=== PATIENT | female | born 1965 | race Caucasian/White ===

== ENCOUNTER → 2021-02-19 08:50 | Outpatient (BNVA) | payer OTHER, SELFPAY | PROVIDERS: Family Provider Nurse Practitioner; PCP Nurse Practitioner; Visit Provider Nurse Practitioner | DX: I10 Essential (primary) hypertension (principal); E55.9 Vitamin D deficiency, unspecified; M79.10 Myalgia, unspecified site; F41.9 Anxiety disorder, unspecified | CPT/HCPCS: 80053; 80061; 82306; 84443 ==

== ENCOUNTER → 2021-08-26 10:05 | Outpatient (BNVA) | payer OTHER, SELFPAY | PROVIDERS: Family Provider Nurse Practitioner; PCP Nurse Practitioner; Visit Provider Nurse Practitioner Family | DX: I10 Essential (primary) hypertension (principal); E55.9 Vitamin D deficiency, unspecified | CPT/HCPCS: 80053; 80061; 82306; 84443; 85025 ==

== ENCOUNTER 2021-09-02 15:39 | Outpatient (CLI) | payer OTHER, SELFPAY | END 2021-09-02 15:40 | disposition home or self-care (01) | LOC: RAD 09-07 14:33 | PROVIDERS: Family Provider Nurse Practitioner; PCP Nurse Practitioner; Visit Provider Nurse Practitioner Family | DX: R73.9 Hyperglycemia, unspecified (principal) | CPT/HCPCS: 83036 ==

== ENCOUNTER → 2021-11-23 09:13 | Outpatient (BNVA) | payer OTHER, SELFPAY | PROVIDERS: Family Provider Nurse Practitioner; PCP Nurse Practitioner; Visit Provider Nurse Practitioner Family | DX: E11.9 Type 2 diabetes mellitus without complications (principal); M79.10 Myalgia, unspecified site; I10 Essential (primary) hypertension; F41.9 Anxiety disorder, unspecified; J44.9 Chronic obstructive pulmonary disease, unspecified | CPT/HCPCS: 83036 ==

== ENCOUNTER 2022-02-01 18:10 | Emergency (ER) | payer SELFPAY ==
[2022-02-01 18:38] VITALS: PULSE 98; RESP 16; TEMP 36.2; O2SAT 95; BMI 40.2
--- NOTE | 2022-02-01 18:55 | ED_ITS ---
HPI - Neuro Symptoms/Deficit General: Chief Complaint: Neuro Symptoms/Deficit Stated Complaint: Left side of face drooping Time Seen by Provider: 02/01/22 18:46 Source: patient Mode of arrival: ambulatory Limitations: no limitations History of Present Illness: 56-year-old female who states that yesterday started having facial droop she noticed it more today she does have a severe left-sided facial droop she states that her eye has been watering she denies any headache she has had no weakness no focal deficits otherwise she is ambulatory denies any change in her vision. Denies any worsening improving factors Associated symptoms: Deny chest pain, headache(s), nausea or vomiting Review of Systems Const: Denies: fever(s), chills, body aches or change in appetite Eyes: Denies: blurry vision or eye discomfort ENMT: Denies: throat pain or dental pain Card: Denies: chest pain Resp: Denies: dyspnea GI: Denies: abdominal pain, nausea, vomiting or diarrhea : Denies: dysuria Musc: Denies: neck pain or back pain Skin/Breast: Denies: rash Neuro: Denies: headache(s) Psych: Denies: depression Main/Lymph: Denies: easy bruising All/Imm: Denies: urticaria PFSH ED PFSH: Medical History Acid reflux Anxiety COPD (chronic obstructive pulmonary disease) Essential (primary) hypertension Generalized muscle ache History of posttraumatic stress disorder (PTSD) Seasonal allergic rhinitis Type 2 diabetes mellitus Surgical History History of tonsillectomy History of tubal ligation Family History Other Cancer Diabetes Lung disease Denies family history of Bleeding disorder Social History Smoking and tobacco status: current every day smoker Second hand smoke exposure: Yes Smoking risk assessment/counseling performed?: Yes Alcohol intake: unknown Desire information about alcohol rehabilitation?: No Counseling given: No Desire information about substance/drug rehabilitation?: No Counseling given: No Adopted: No Caregiver/support person: No Lives independently: Yes Marital status: Number of children: 2 service: No Current occupational status: employed History of recent travel: No Current gender identity: Female Physical Exam Const: COMMON NORMALS: no acute distress, patient oriented x3 and healthy appearing HENMT: COMMON NORMALS: normocephalic and atraumatic HEAD & SCALP: normocephalic and atraumatic Eye: COMMON NORMALS: Equal, round and reactive pupils present and EOMs intact bilaterally PUPIL: Yes Equal, round and reactive pupils present Neck/C-Spine: COMMON NORMALS: full ROM and supple Chest: COMMONS NORMALS: normal inspection of the chest and normal palpation of entire chest wall Resp: COMMON NORMALS: normal respiratory effort, No retractions, No use of accessory muscles and clear to auscultation bilaterally AUSCULTATION: clear to auscultation bilaterally Cardio: COMMON NORMALS: regular rate, regular rhythm and No murmurs present (Cardio) RATE: regular rate RHYTHM: regular rhythm GI: COMMON NORMALS: Normal to inspection, nondistended, normoactive bowel sounds present, Soft to palpation, non-tender and no masses PALPATION: Yes Soft to palpation Extremity: COMMON NORMALS: normal to inspection and full ROM Neuro: COMMON NORMALS: patient oriented x3, moves all extremities and no focal motor deficits OTHER: Facial droop to the left side Psych: COMMON NORMALS: mental status grossly normal, Normal thought process present and cooperative THOUGHT PROCESS: Normal thought process present Skin: COMMON NORMALS: no rashes or lesions noted and no wounds GENERAL SKIN EXAM: no rashes or lesions noted Course Vital Signs: Vital signs: Vital Signs Temperature 97.2 F L 02/01/22 18:38 Pulse Rate 98 02/01/22 18:38 Respiratory Rate 16 02/01/22 18:38 Pulse Oximetry 95 02/01/22 18:38 MDM - Neuro Symptoms/Deficit Medical Decision Making Patient presents here with facial droop to the left side consistent with a Varghese's palsy she has no other symptoms no signs of a stroke we will start her on antivirals along with prednisone and follow-up with her PCP I did instruct her to use artificial drops for her eye and to tape her eye shut. Discharge Plan Discharge Patient Disposition: Home Clinical Impression: Varghese's palsy Condition: Stable Prescriptions: New prednisone 50 mg tablet 50 mg PO DAILY Qty: 5 0RF acyclovir 400 mg tablet 400 mg PO 5XD 10 Days Qty: 50 0RF Rx Instructions: space evenly during waking hours No Action loratadine 10 mg capsule 10 mg PO DAILY metformin 500 mg tablet extended release 24hr 500 mg PO BID Qty: 90 0RF cyclobenzaprine 10 mg tablet 10 mg PO BID Qty: 180 0RF losartan [Cozaar] 50 mg tablet 50 mg PO DAILY Qty: 90 0RF magnesium 250 mg tablet 250 mg PO DAILY 90 Days Qty: 90 0RF meloxicam 15 mg tablet 15 mg PO DAILY Qty: 90 0RF propranolol 20 mg tablet 20 mg PO BID Qty: 180 0RF trazodone 100 mg tablet 100 mg PO DAILY Qty: 90 0RF venlafaxine [Effexor XR] 75 mg capsule,extended release 24hr 75 mg PO BID Qty: 180 0RF doxepin 25 mg capsule 25 mg PO TID Qty: 90 0RF Discharge Orders: Discharge ED (Routine); Ordered 02/01/22 Ordered By: Jeannine Haynes Referrals: Geovanny Toscano, MECHAN[employer] APPLICATIONS ENGINEER-C [Primary Care Provider] - 1-3 days Discharge Diet: Advance as tolerated Discharge Activity: Resume usual activity Patient Instructions: Varghese Palsy (ED) Coding Level of Care Code ED Partition Notcher for Minerva Cheney
== END 2022-02-01 19:06 | disposition home or self-care (01) ==
PROVIDERS: Emergency Provider Emergency Medicine; PCP Nurse Practitioner
DX: R29.810 Facial weakness (principal); E11.9 Type 2 diabetes mellitus without complications; I10 Essential (primary) hypertension; J44.9 Chronic obstructive pulmonary disease, unspecified; F17.200 Nicotine dependence, unspecified, uncomplicated; Z79.84 Long term (current) use of oral hypoglycemic drugs
CPT/HCPCS: 99283

== ENCOUNTER → 2022-08-17 16:31 | Outpatient (BNVA) | payer SELFPAY | PROVIDERS: PCP Nurse Practitioner; Visit Provider Nurse Practitioner | DX: J44.9 Chronic obstructive pulmonary disease, unspecified (principal) | CPT/HCPCS: 80053; 84443; 85025 ==

== ENCOUNTER → 2022-09-01 14:51 | Outpatient (BNVA) | payer SELFPAY | PROVIDERS: PCP Nurse Practitioner; Visit Provider Nurse Practitioner | DX: E11.9 Type 2 diabetes mellitus without complications (principal) | CPT/HCPCS: 83036 ==

== ENCOUNTER → 2022-09-02 10:09 | Outpatient (BNVA) | payer SELFPAY | PROVIDERS: PCP Nurse Practitioner; Visit Provider Nurse Practitioner Family | DX: M25.462 Effusion, left knee (principal); M25.562 Pain in left knee | CPT/HCPCS: 73562 ==

== ENCOUNTER → 2022-11-24 11:16 | Outpatient (BNVA) | payer SELFPAY | PROVIDERS: PCP Nurse Practitioner; Visit Provider Nurse Practitioner Family | DX: R07.81 Pleurodynia (principal) | CPT/HCPCS: 71100 ==

== ENCOUNTER 2022-12-04 19:05 | Emergency (ER) | payer SELFPAY ==
--- NOTE | 2022-12-04 19:26 | XRR_ITS ---
PROCEDURE INFORMATION: Exam: XR Chest Exam date and time: 12/04/2022 8:04 PM Age: 56 years old Clinical indication: Pain; Right-sided; Additional info: Cp TECHNIQUE: Imaging protocol: Radiologic exam of the chest. Views: 1 view. COMPARISON: CR XR ribs LT 2V* [id number] 11/24/2022 11:15 AM FINDINGS: Lungs: Hazy opacity in the lung bases is most likely soft tissue attenuation. The lungs are otherwise clear. Pleural spaces: Unremarkable. No pleural effusion. No pneumothorax. Heart/Mediastinum: Unremarkable. No cardiomegaly. Bones/joints: Unremarkable. Soft tissues: Unremarkable. XR/XR chest 1V portable [id number] IMPRESSION: No acute findings.
--- NOTE | 2022-12-04 19:26 | ECG_ITS ---
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 Measurements Intervals [place] Rate: 104 P: 41 MI: 138 QRS: -6 QRSD: 79 T: 52 QT: 349 QTc: 460 Interpretive Statements SINUS TACHYCARDIA LOW QRS VOLTAGE IN PRECORDIAL LEADS [QRS DEFLECTION < 1.0 mV IN CHEST LEADS] ABNORMAL RHYTHM ECG No previous ECG available for comparison Electronically Signed On 12-05-2022 19:43:06 CDT by Dayna Linda M.D. [id number]
[2022-12-04 19:56] VITALS: BMI 39.3
--- NOTE | 2022-12-04 22:19 | W.ED.FALL ---
HPI - Fall General: Chief Complaint: Fall Stated Complaint: Right side rib pain Time Seen by Provider: 12/04/22 20:45 History of Present Illness: 56-year-old female fell on Tuesday injuring her right anterior ribs. Patient has tried to manage her pain at home with ibuprofen and ice packs with minimal relief. Patient appears nontoxic. Patient reports no fever or chills. Patient appears in mild to moderate pain. Associated symptoms-after fall: Reports chest pain (Chest wall pain right lower anterior ribs); Denies abdominal pain Review of Systems General: Reports: 10 or more systems reviewed and unremarkable except in HPI and below Const: Denies: fever(s) Card: Reports: chest pain (Chest wall pain right lower anterior ribs) Resp: Denies: dyspnea GI: Denies: abdominal pain, nausea or vomiting : Denies: difficulty voiding Musc: Reports: other (Right anterior rib pain) [facility] ED PFSH: Medical History Acid reflux Anxiety COPD (chronic obstructive pulmonary disease) Essential (primary) hypertension Generalized muscle ache History of posttraumatic stress disorder (PTSD) Seasonal allergic rhinitis Type 2 diabetes mellitus Surgical History History of tonsillectomy History of tubal ligation Family History Other Cancer Diabetes Lung disease Denies family history of Bleeding disorder Social History Smoking and tobacco status: current every day smoker Second hand smoke exposure: Yes Smoking risk assessment/counseling performed?: Yes Alcohol intake: unknown Desire information about alcohol rehabilitation?: No Counseling given: No Substance/Drug Use: unknown Desire information about substance/drug rehabilitation?: No Counseling given: No Adopted: No Caregiver/support person: No Lives independently: Yes Housing: House Marital status: Number of children: 2 service: No Current occupational status: employed Do you think of yourself as: Straight/Heterosexual Current gender identity: Female Physical Exam Const: COMMON NORMALS: alert HENMT: COMMON NORMALS: normocephalic HEAD & SCALP: normocephalic Neck/C-Spine: COMMON NORMALS: full ROM Chest: CHEST: Yes tenderness (Right anterior lower ribs.) Resp: COMMON NORMALS: normal respiratory effort and clear to auscultation bilaterally AUSCULTATION: clear to auscultation bilaterally Cardio: COMMON NORMALS: regular rate and regular rhythm RATE: regular rate RHYTHM: regular rhythm GI: COMMON NORMALS: Soft to palpation and non-tender PALPATION: Yes Soft to palpation Back/Pelvis: COMMON NORMALS: thoracic and lumbar spine normal to inspection Extremity: COMMON NORMALS: normal to inspection Neuro: SENSORIUM/ORIENTATION: Yes alert Skin: COMMON NORMALS: turgor normal GENERAL SKIN EXAM: turgor normal MDM - Fall Medical Decision Making 56-year-old female comes in today with injury to the right anterior ribs. On exam patient has tenderness on palpation of the ribs without any flailing of the chest or crepitus noted. Lungs are clear to auscultation. Vital signs are normal. Differential diagnosis includes fracture, contusion, pneumothorax, pneumonia. Chest x-ray noted no pneumothorax or pneumonia. No obvious fractures were noted on chest x-ray. I believe patient probably has a nondisplaced fracture of the right anterior lower rib. I do not suspect multiple ribs. No signs of serious injury is noted. Patient was given hydrocodone to help with her pain for the next 2 to 3 days and recommend to follow-up with primary care. Patient reported understanding and agreed to plan. Lab Data Radiology Impressions Chest X-Ray 12/04/22 19:26 IMPRESSION: No acute findings. Discharge Plan Discharge Patient Disposition: Home Clinical Impression: Closed rib fracture Qualifiers: Encounter type: initial encounter Rib fracture type: single rib Laterality: right Qualified Code(s): S22.31XA - Fracture of one rib, right side, initial encounter for closed fracture Condition: Stable Prescriptions: New hydrocodone-acetaminophen 5-325 mg tablet 1 tab PO Q6H PRN (Reason: pain (scale score 7-10)) Qty: 10 0RF No Action magnesium 250 mg tablet 250 mg PO DAILY 90 Days Qty: 90 0RF trazodone 150 mg tablet 150 mg PO .at bedtime Qty: 90 0RF venlafaxine [Effexor XR] 75 mg capsule,extended release 24hr 75 mg PO BID Qty: 180 0RF metformin 500 mg tablet extended release 24hr 500 mg PO BID Qty: 180 0RF meloxicam 15 mg tablet 15 mg PO DAILY Qty: 90 0RF losartan [Cozaar] 50 mg tablet 50 mg PO DAILY Qty: 90 0RF doxepin 25 mg capsule 25 mg PO BID Qty: 180 0RF cyclobenzaprine 10 mg tablet 10 mg PO BID Qty: 180 0RF albuterol sulfate 2.5 mg /3 mL (0.083 %) solution for nebulization 2.5 mg inhalation Q4H PRN (Reason: shortness of breath or wheezing) Qty: 180 2RF metoprolol tartrate 50 mg tablet 50 mg PO BID Qty: 180 0RF prednisone 20 mg tablet 20 mg PO BID Qty: 10 0RF potassium 99 mg Tablet 99 mg PO BID Vitamin D3 25 mcg (1,000 unit) Tablet 25 mcg PO DAILY Discharge Orders: Discharge ED (Routine); Ordered 12/04/22 Ordered By: Scottie James Referrals: Geovanny Toscano, [employer] OPERATOR-C [Primary Care Provider] - Discharge Diet: Usual diet Discharge Activity: Increase activity as tolerated Patient Instructions: Rib Fracture (ED), Opioid Safety, Pain Management Activity Restrictions/Additional Instructions: Maintain normal activity as much as possible. Use acetaminophen and/or ibuprofen as needed to control pain. Use hydrocodone for severe pain. Follow-up with primary care for further instructions. Return to ED for new concerns. Coding Level of Care Code ED Wire Tinner for Minerva Cheney
[2022-12-04] MEDS: HYDROcodone-acetaminophen 10-325 mg Tablet 1 TAB PO (22:38)
== END 2022-12-04 22:42 | disposition home or self-care (01) ==
PROVIDERS: Emergency Provider Nurse Practitioner Family; PCP Nurse Practitioner
DX: S22.31XA Fracture of one rib, right side, initial encounter for closed fracture (principal); F17.210 Nicotine dependence, cigarettes, uncomplicated; J44.9 Chronic obstructive pulmonary disease, unspecified; I10 Essential (primary) hypertension; E11.9 Type 2 diabetes mellitus without complications; W19.XXXA Unspecified fall, initial encounter
CPT/HCPCS: 71045; 93005; 99284

== ENCOUNTER → 2023-06-23 11:53 | Outpatient (BNVA) | payer SELFPAY | PROVIDERS: PCP Nurse Practitioner | DX: Z13.6 Encounter for screening for cardiovascular disorders (principal) | CPT/HCPCS: 80061; 82947; 83036 ==

== ENCOUNTER → 2024-01-18 11:21 | Outpatient (BNVA) | payer OTHER, SELFPAY | PROVIDERS: PCP Nurse Practitioner; Visit Provider Nurse Practitioner Family | DX: M79.644 Pain in right finger(s) (principal) | CPT/HCPCS: 73130 ==

== ENCOUNTER → 2024-01-25 08:59 | Outpatient (BNVA) | payer OTHER, SELFPAY | PROVIDERS: PCP Nurse Practitioner; Visit Provider Nurse Practitioner | DX: I10 Essential (primary) hypertension (principal) | CPT/HCPCS: 81000 ==

== ENCOUNTER → 2024-08-15 14:32 | Outpatient (BNVA) | payer OTHER, SELFPAY | PROVIDERS: PCP Nurse Practitioner; Visit Provider Nurse Practitioner | DX: I10 Essential (primary) hypertension (principal); E11.65 Type 2 diabetes mellitus with hyperglycemia | CPT/HCPCS: 80053; 80061; 83036 ==

== ENCOUNTER 2024-09-19 10:58 | Outpatient (CLI) | payer OTHER, SELFPAY ==
--- NOTE | 2024-09-19 11:00 | MM_ITS ---
WS: [id number] BILATERAL SCREENING DIGITAL TOMOSYNTHESIS MAMMOGRAM WITH CAD HISTORY: Z12.31 - Encounter for screening mammogram for malignant ... COMPARISON: None available. Bilateral CC and MLO views with tomosynthesis and synthetic mammography submitted. Computer aided detection analyzed. Breast composition: The breasts are almost entirely fatty. No suspicious masses, microcalcifications or architectural distortion. Benign calcifications. MM/MM scr BI tomosynthesis [id number] IMPRESSION: BI-RADS: 2 - Benign. FOLLOW UP: 1 Year Follow-up
== END 2024-09-19 10:59 | disposition home or self-care (01) ==
LOC: MOBLMAM 11:03
PROVIDERS: PCP Nurse Practitioner; Visit Provider Nurse Practitioner
DX: Z12.31 Encounter for screening mammogram for malignant neoplasm of breast (principal); R92.313 Mammographic fatty tissue density, bilateral breasts; R92.1 Mammographic calcification found on diagnostic imaging of breast
CPT/HCPCS: 77063; 77067

== ENCOUNTER → 2025-02-14 13:31 | Outpatient (BNVA) | payer OTHER, SELFPAY | PROVIDERS: PCP Nurse Practitioner; Visit Provider Nurse Practitioner | DX: E11.65 Type 2 diabetes mellitus with hyperglycemia (principal) | CPT/HCPCS: 80053; 80061; 83036 ==

== ENCOUNTER 2025-04-10 10:00 | Outpatient (CLI) | payer SELFPAY ==
--- NOTE | 2025-04-10 10:15 | MR_ITS ---
WS: [id number] MRI LEFT KNEE NONCONTRAST TECHNIQUE: Axial PD, coronal PD fat sat, coronal PD, sagittal PD, and sagittal PD fat-sat images obtained. CLINICAL INFORMATION: M17.12 - Unilateral primary osteoarthritis, left knee COMPARISON: None. FINDINGS: Distal quadriceps and patella tendons are intact. ACL and PCL appear intact. Advanced tricompartment arthritis with loss of the medial joint compartment. Associated subchondral edema and subchondral cystic change in the medial tibial plateau and femoral condyle. Grade IV chondromalacia patella. Medial and lateral patellar retinaculum appear intact. Small suprapatellar effusion. Tiny lobulated popliteal cyst measuring 3.5 x 0.9 cm. Medial and lateral collateral ligaments are intact. Hypertrophic changes along the joint line. Chronic thinning of the medial lateral meniscus. Horizontal tear involving the medial meniscus extending to the free edge and meniscal root. Blunting of the medial meniscus. MR/MR knee LT wo con* [id number] IMPRESSION: 1. Advanced tricompartment arthritis with complete loss of the medial joint co mpartment. Associated subchondral edema and subchondral cystic change in the me dial femoral condyle and medial tibial plateau. 2. Grade IV chondromalacia patella. 3. Small suprapatellar effusion. 4. Horizontal tear involving the medial meniscus extending to the free edge an d meniscal root with blunting. 5. Medial and lateral collateral ligaments appear intact. 6. Popliteal cyst measuring 3.5 x 0.9 cm. Outbridge grading: grade IV: full-thickness cartilage loss with underlying bone reactive changes
== END 2025-04-10 10:01 | disposition home or self-care (01) ==
LOC: RAD 10:02
PROVIDERS: PCP Nurse Practitioner Family; Visit Provider Nurse Practitioner Family
DX: M17.12 Unilateral primary osteoarthritis, left knee (principal); M23.8X2 Other internal derangements of left knee; M25.662 Stiffness of left knee, not elsewhere classified; M25.562 Pain in left knee; M22.42 Chondromalacia patellae, left knee; M23.232 Derangement of other medial meniscus due to old tear or injury, left knee; M25.462 Effusion, left knee; M71.22 Synovial cyst of popliteal space [Baker], left knee
CPT/HCPCS: 73721